=== PATIENT | male | born 1990 | race Caucasian/White ===

== ENCOUNTER 2020-02-06 09:55 | Emergency (ER) | payer OTHER, MEDICAID ==
[2020-02-06] MEDS ORDERED: NORMAL SALINE 1000 ML 1,000 ML IV ONE (11:10)
[2020-02-06] MEDS ORDERED: ONDANSETRON 4 MG TAB.RAPDIS PO ONE (11:10)
--- NOTE | 2020-02-06 11:14 | ER Document Report ---
ED Medical Screen (RME) - General Stated Complaint: NAUSEA/VOMITING/DIARRHEA Time Seen by Provider: 02/06/20 10:58 Primary Care Provider: SOO OROURKE PA [Primary Care Provider] - Follow up as needed - [facility] Notes: 02/06/20 11:07 29 yr old male presents to ER for c/o of n/v/d started 2 nights ago. Denies any new foods, medications or recent travel. Reports that he has exacerbations of his gastrointestinal issues usually once a month for the last year, is not followed up for this because [place] and [facility]. reports he last vomited at 7am this morning. denies any fevers/chills. no melena, no hematuria. Patient is never been diagnosed with IBS or Crohn's disease. Has not tried any [id number] medications. Worse with time, nothing makes better. Patient reports having pain in the lower right upper quadrant lower left upper quadrant, periumbilical area. Denies any flank pain, dysuria, fevers chills, shortness of breath, chest pain, numbness or tingling down arms or legs. Has never had a colonoscopy or endoscopy. I have greeted and performed a rapid initial assessment of this patient. A comprehensive ED assessment and evaluation of the patient, analysis of test results and completion of the medical decision making process will be conducted by additional ED providers. PHYSICAL EXAMINATION: GENERAL: Well-appearing, well-nourished and in no acute distress. CV: s1, s2 regular LUNGS: No respiratory distress abd: RLQ, LLQ, umbilical tenderness on palpation, no CVA tenderness appreciated bilaterally Musculoskeletal: Normal range of motion NEUROLOGICAL: Normal speech, normal gait. SKIN: Warm, Dry, normal turgor, no rashes or lesions noted. Physical Exam - Vital signs Vitals: Temp Pulse Resp BP Pulse Ox 97.5 F 103 H 18 157/102 H 97 02/06/20 10:02/06/20 10:02/06/20 10:02/06/20 10:02/06/20 10:00 Course - Vital Signs Vital signs: Temp Pulse Resp BP Pulse Ox 97.5 F 103 H 18 157/102 H 97 02/06/20 10:02/06/20 10:02/06/20 10:00 02/06/20 10:00 02/06/20 10:00 - Laboratory Result Diagrams: 02/06/20 10:40 02/06/20 10:40 Doctor's Discharge - Discharge Referrals: SOO OROURKE PA [Primary Care Provider] - Follow up as needed
[2020-02-06 11:30] LABS: ABSOLUTE EOSINOPHILS # (AUTO) 0.2 10^3/uL (0.0-0.6); ABSOLUTE LYMPHOCYTES (AUTO) 3.7 10^3/uL (0.5-4.7); ABSOLUTE MONOCYTES (AUTO) 0.7 10^3/uL (0.1-1.4); ABSOLUTE NEUT (AUTO) 6.4 10^3/uL (1.7-8.2); BASOPHILS % (AUTO) 0.2 % (0-2); EOSINOPHILS % (AUTO) 1.5 % (0-6); HEMATOCRIT 44.8 % (37.9-51.0); HEMOGLOBIN 15.7 g/dL (13.5-17.0); LYMPHOCYTES % (AUTO) 33.5 % (13-45); MEAN CORPUSCULAR HEMOGLOBIN 30.2 pg (27.0-33.4); MEAN CORPUSCULAR HGB CONC 35.1 g/dL (32.0-36.0); MEAN CORPUSCULAR VOLUME 86 fl (80-97); MONOCYTES % (AUTO) 6.3 % (3-13); PLATELET COUNT 300 10^3/uL (150-450); RED BLOOD COUNT 5.21 10^6/uL (4.35-5.55); RED CELL DISTRIBUTION WIDTH 13.2 % (11.5-14.0); SEGMENTED NEUTROPHILS % (AUTO) 58.5 % (42-78); TOTAL CELLS COUNTED % (AUTO) 100 %; WHITE BLOOD COUNT 10.9 10^3/uL (4.0-10.5)
[2020-02-06 11:42] LABS: APPEARANCE,URINE CLEAR; BILIRUBIN,URINE NEGATIVE (NEGATIVE); COLOR,URINE YELLOW; GLUCOSE, URINE NEGATIVE (NEGATIVE); KETONES,URINE NEGATIVE (NEGATIVE); LEUKOCYTE ESTERASE,URINE NEGATIVE (NEGATIVE); NITRITE,URINE NEGATIVE (NEGATIVE); PROTEIN,URINE NEGATIVE (NEGATIVE); URINE SPECIFIC GRAVITY 1.012; UROBILINOGEN,URINE NEGATIVE mg/dL (<2.0)
[2020-02-06 11:50] LABS: ALBUMIN 4.9 g/dL (3.5-5.0); ALKALINE PHOSPHATASE 125 U/L (38-126); ANION GAP 16 (5-19); ASPARTATE AMINO TRANSFERASE 31 U/L (17-59); BILIRUBIN,DIRECT 0.1 mg/dL (0.0-0.4); BILIRUBIN,TOTAL 0.8 mg/dL (0.2-1.3); BLOOD UREA NITROGEN 15 mg/dL (7-20); CALCIUM 10.2 mg/dL (8.4-10.2); CARBON DIOXIDE 26 mmol/L (22-30); CHLORIDE 98 mmol/L (98-107); GLUCOSE 171 mg/dL (75-110); TOTAL PROTEIN 8.1 g/dL (6.3-8.2)
[2020-02-06] MEDS ORDERED: ONDANSETRON HCL INJ/PF 4 MG/2 ML SDV IV ONE (12:19)
--- NOTE | 2020-02-06 14:14 | RADIOLOGY REPORT (SQ) ---
EXAM DESCRIPTION: CT ABD/PELVIS WITH IV ORAL IMAGES COMPLETED DATE/TIME: 02/06/2020 1:45 pm REASON FOR STUDY: abd pain, n/v/d x 2 days. COMPARISON: None. TECHNIQUE: CT scan of the abdomen and pelvis performed with intravenous and oral contrast using jaime christiano scanning technique with dynamic intravenous contrast injection. Images reviewed with lung, soft t issue, and bone windows. Reconstructed coronal and sagittal MPR images reviewed. Delayed images for e valuation of the urinary system also acquired. All images stored on PACS. All CT scanners at this facility use dose modulation, iterative reconstruction, and/or weight based d osing when appropriate to reduce radiation dose to as low as reasonably achievable (ALARA). [facility]: Dose Right [facility]: CareDose [facility]: Dose Right [facility]: Teradose 4D [facility]: BTIG CONTRAST TYPE AND DOSE: contrast/concentration: Isovue 350.00 mmol/ml; Total Contrast Delivered: 99. 0 ml; Total Saline Delivered: 56.0 ml 100 mL Omnipaque 350- low osmolar. RENAL FUNCTION: BUN 15; creatinine 0.74 RADIATION DOSE: CT Rad equipment meets quality standard of care and radiation dose reduction techniq ues were employed. CTDIvol: 18.6 - 21.0 mGy. DLP: 2173 mGy-cm.. LIMITATIONS: None. FINDINGS: LOWER CHEST: No significant findings. No nodules or infiltrates. LIVER: Normal size. No masses. No dilated ducts. SPLEEN: Normal size. No focal lesions. Calcifications are noted, suggestive of prior granulomatous d isease. PANCREAS: No masses. No significant calcifications. No adjacent inflammation or peripancreatic fluid collections. Pancreatic duct not dilated. GALLBLADDER: No identified stones by CT criteria. No inflammatory changes to suggest cholecystitis. ADRENAL GLANDS: No significant masses or asymmetry. RIGHT KIDNEY AND URETER: No solid masses. No significant calcification. No hydronephrosis or hydroure ter. LEFT KIDNEY AND URETER: No solid masses. No significant calcification. No hydronephrosis or hydrouret er. AORTA AND VESSELS: No aneurysm. No dissection. Renal arteries, SMA, celiac without stenosis. RETROPERITONEUM: No retroperitoneal adenopathy, hemorrhage or masses. BOWEL AND PERITONEAL CAVITY: No obstruction. No visualized masses. No free fluid. No inflammatory ch anges or thickening of bowel wall. APPENDIX: Normal. PELVIS: No significant masses. Normal bladder. No free fluid. ABDOMINAL WALL: No masses. No hernias. BONES: No significant or acute findings. OTHER: No other significant finding. IMPRESSION: No acute inflammatory changes in the abdomen or pelvis. TECHNICAL DOCUMENTATION: JOB ID: [id number] Quality ID # [id number]: Final reports with documentation of one or more dose reduction techniques (e.g., Au tomated exposure control, adjustment of the mA and/or kV according to patient size, use of iterative reconstruction technique) 2010 [employer] All Rights Reserved Reading location - IP/workstation name: [email or web address]
--- NOTE | 2020-02-06 14:44 | ER Document Report ---
Entered by JAVED DUNLAP SCRIBE 02/06/20 1217 Acting as scribe for:TADEO LAMB MD ED GI/ - General Chief Complaint: Nausea/Vomiting Stated Complaint: NAUSEA/VOMITING/DIARRHEA Time Seen by Provider: 02/06/20 10:58 Primary Care Provider: SOO OROURKE PA [ALLIED HEALTH PROFESSIONAL] - Follow up as needed Information source: Patient Notes: This 29 year old male patient presents to the emergency department today with complaints of cramping abdominal pain and N/V/D that comes and goes for the past x2 nights. Patient states these symptoms are recurrent each month for the past year. Denies history of colitis or abdominal surgery. Patient reports history of DM, PTSD, and a traumatic brain injury while in the . Denies covid exposure, cough, sore throat, or loss of taste. Past Medical History - General Information source: Patient - Social History Smoking Status: Unknown if Ever Smoked Frequency of alcohol use: Rare Family History: Reviewed & Not Pertinent Endocrine Medical History: Reports: Hx Diabetes Mellitus Type 2 Psychiatric Medical History: Reports: Hx Post Traumatic Stress Disorder Traumatic Medical History: Reports: Hx Traumatic Brain Injury Review of Systems - Review of Systems Constitutional: No symptoms reported EENT: See HPI. denies: Throat pain, Other - loss of taste Cardiovascular: No symptoms reported Respiratory: See HPI. denies: Cough Gastrointestinal: See HPI, Abdominal pain, Diarrhea, Nausea, Vomiting Genitourinary: No symptoms reported Male Genitourinary: No symptoms reported Musculoskeletal: No symptoms reported Skin: No symptoms reported Hematologic/Lymphatic: No symptoms reported Neurological/Psychological: No symptoms reported -: Yes All other systems reviewed and negative Physical Exam - Vital signs Vitals: Temp Pulse Resp BP Pulse Ox 97.5 F 103 H 18 157/102 H 97 02/06/20 10:00 02/06/20 10:00 02/06/20 10:00 02/06/20 10:00 02/06/20 10:00 - General General appearance: Appears well, Alert - HEENT Head: Normocephalic, Atraumatic Eyes: Normal Pupils: PERRL - Respiratory Respiratory status: No respiratory distress Chest status: Nontender Breath sounds: Normal Chest palpation: Normal - Cardiovascular Rhythm: Regular Heart sounds: Normal auscultation Murmur: No - Abdominal Inspection: Normal Distension: No distension Bowel sounds: Normal Tenderness: Tender. No: Guarding, Rebound - Extremities General upper extremity: Normal inspection, Normal ROM General lower extremity: Normal inspection, Normal ROM. No: Edema - Neurological Neuro grossly intact: Yes Cognition: Normal Orientation: AAOx4 Armour Coma Scale Eye Opening: Spontaneous Armour Coma Scale Verbal: Oriented Hyacinth Coma Scale Motor: Obeys Commands Hyacinth Coma Scale Total: 15 Speech: Normal Sensory: Normal - Psychological Associated symptoms: Normal affect, Normal mood - Skin Skin Temperature: Warm Skin Moisture: Dry Skin Color: Normal Course - Re-evaluation Re-evalutation: 02/06/20 14:39 Patient resting comfortably states he has no nausea at this time and his abdominal abdominal pain is resolved. No cramping at this time. - Vital Signs Vital signs: Temp Pulse Resp BP Pulse Ox 97.5 F 103 H 18 157/102 H 97 02/06/20 10:00 02/06/20 10:00 02/06/20 10:00 02/06/20 10:00 02/06/20 10:00 02/06/20 14:39 Vital signs shows systolic diastolic hypertension 157/102 repeat vital signs prior to discharge. - Laboratory Result Diagrams: 02/06/20 10:40 02/06/20 10:40 Laboratory results interpreted by me: 02/06/20 02/06/20 10:40 10:40 WBC 10.9 H Glucose 171 H 02/06/20 14:39 Laboratories show a mild elevation white count 10.9 with a glucose of 171 patient does have diabetes mellitus. - Diagnostic Test Radiology reviewed: Image reviewed, Reports reviewed Radiology results interpreted by me: 02/06/20 14:40 Abdomen/Pelvis CT 02/06/20 00:00 IMPRESSION: No acute inflammatory changes in the abdomen or pelvis. CT scan of abdomen and pelvis with oral and IV contrast shows no acute inflammatory changes in the abdomen or pelvis. Discharge - Discharge Clinical Impression: Nausea, Abdominal pain Condition: Stable Disposition: HOME, SELF-CARE Instructions: Abdominal Pain ([facility]) Additional Instructions: Nausea or Vomiting, Nonspecific Vomiting (or nausea without vomiting) can be caused by many different problems. Of course, it can mean that something's wrong with the stomach, such a s "stomach flu," ulcers, or inflammation. But it can also be a symptom of a problem that has nothing to do with the stomach or intestines. Vomiting is common with severe headaches, earaches, and tonsillitis. We see it with pneumonia or heart attacks. Drugs can cause nausea. Many abdominal problems c ause vomiting; for example, gallstones, kidney stones, pancreatitis, and intestinal obstruction (blocked bowels). In most cases, curing the vomiting depends on fixing the problem that caused it. For temporary relief, we may use an anti-nausea medicine. For home use, we can prescribe suppositories, chewable pills, pills that dissolve in the mouth, or liquid anti-nausea drugs. If the vomiting seems to be caused by a problem in the stomach, acid-suppressing drugs may be prescribed as well. It's important to avoid dehydration. Sip clear liquids. Take increasing amounts of fluid over the first 24 hours. Then start small amounts of bland foods (such as dry toast, applesauce, mashed potato). Avoid aspirin, tobacco, and alcohol. Gradually resume your usual diet. If the vomiting worsens, if the problem that's making you vomit worsens, or if there's evidence of bleeding in the stomach (such as black, tarry stool, bloody or black vomit, or lightheadedness), you should return immediately. Call your doctor if you aren't improved in 24 to 36 hours. Referrals: SOO OROURKE PA [ALLIED HEALTH PROFESSIONAL] - Follow up as needed I personally performed the services described in the documentation, reviewed and edited the documentation which was dictated to the scribe in my presence, and it accurately records my words and actions.
[2020-02-06 15:18] VITALS: BP 124/80
== END 2020-02-06 15:18 | disposition home or self-care (01) ==
LOC: ER 09:55
DX: R11.2 Nausea with vomiting, unspecified (principal); R10.9 Unspecified abdominal pain; R19.7 Diarrhea, unspecified; E11.9 Type 2 diabetes mellitus without complications; Z87.820 Personal history of traumatic brain injury
CPT/HCPCS: 99285; 96361; 96374; 36415; 83690; 85025; 80053; 81001; 74177; J2405; J7030